=== PATIENT | male | born 1965 | race Caucasian/White ===

== ENCOUNTER 2017-04-15 18:35 | Emergency (ER) | payer OTHER ==
[2017-04-15 18:40] VITALS: RESP 18
--- NOTE | 2017-04-15 19:40 | CPEKG ---
Heart Rate: 89 RR Interval: 674 P-R Interval: 164 QRSD Interval: 92 QT Interval: 348 QTC Interval: 424 P [place]: 65 QRS [place]: 33 T Wave [place]: 8 EKG Severity - NORMAL ECG - EKG Impression: SINUS RHYTHM Electronically Signed By: Ashok Sood 16-Apr-2017 12:21:00
--- NOTE | 2017-04-15 20:11 | EDPHY ---
HPI/HX/ROS/PE/MDM Narrative: CHIEF COMPLAINT: "I just got concerned I got a clot in my lung" HISTORY OF PRESENT ILLNESS: The patient is a 51 y/o male, with a history of a provoked DVT and Hodgkin's lymphoma, complaining of right-sided chest and neck pain onset a few days ago. Last Wednesday, he developed chest and throat soreness that he attributed to yelling while at a baseball game on Wednesday. Those symptoms completely resolved over the next few days, but two days ago his pleuritic right-sided chest pain recurred. The pain radiates into the right side of his neck and onto his shoulder. He denies arm edema, discoloration, weakness, or paresthesias. He has not had any dyspnea even with exertion or dysphagia. He tried aspirin for pain and is unsure if it helped. He notes the pain today is somewhat similar to pain he experienced prior to his diagnosis with Hodgkin's lymphoma, but that pain was higher up in his neck. He denies history of CAD, OK, or GERD. No recent trauma, cough, fever, chills, chest pain, shortness of breath, palpitations, vomiting, diarrhea, urinary complaints, headache, lightheadedness. REVIEW OF SYSTEMS: Aside from elements discussed in the HPI, a comprehensive 10-point review of systems was reviewed and is negative. PAST MEDICAL HISTORY: Hodgkin's lymphoma post chemotherapy and radiation - he has not continued regular surveillance for the last 6 years, provoked DVT from prolonged commuting 4 years ago - was on Xarelto for 6 months. SOCIAL HISTORY: Nonsmoker. Weekend drinker. No illicit drugs. Employed. PCP: Dr. oDminguez VITAL SIGNS: Reviewed by me GENERAL: Mildly obese, well-nourished, resting comfortably in no respiratory distress. HEENT: Atraumatic. Eyes: No icterus, no injection. Mouth: moist mucous membranes. No erythema or lesions. Neck: supple with no adenopathy. No tenderness to palpation anteriorly. No swelling. LUNGS: Clear to auscultation bilaterally, no wheezes, rhonchi or rales. CHEST: No crepitus. No tenderness. No rash. CARDIAC: Regular rate and rhythm, no rubs, murmurs or gallops. ABDOMEN: Soft, nontender, nondistended, bowel sounds normal. BACK: No CVA tenderness. EXTREMITIES: No trauma. No edema. Range of motion is normal throughout. NEURO: Alert and oriented, grossly nonfocal. SKIN: Warm and dry, no rash. PSYCHIATRIC: Normal mentation, no agitation. Portions of this note were transcribed by a district medical examiner. I personally performed a history, physical exam, medical decision making, and confirmed accuracy of information the transcribed note. ED Course: IV established. Labs drawn. Chest CTA ordered due to concern for potential pulmonary embolism. Patient placed on equipment monitor phototypesetting. The 12 lead EKG was interpreted by myself. Normal sinus rhythm, no ST or T- wave changes See hard copy and/or "tracemaster" electronic copy for interpretation. The patient's laboratory evaluation largely unremarkable. Troponin is negative. Patient has had pain since last Wednesday, described as an aching sensation in the right chest with some discomfort into his right neck. Patient's CT scan does not demonstrate pulmonary embolism. Patient will be discharged with a diagnosis of atypical chest discomfort. He will follow up with his primary care physician. MDM: After history and physical examination, the differential for chest pain was considered, including but not limited to, myocardial ischemia, acute coronary syndrome, pulmonary embolus, chest wall pain, pleural inflammation and pulmonary infectious causes. - Data Points Imaging Results: Imaging Impressions Chest/Thorax CTA 04/15/17 20:20 Impression: 1. No pulmonary emboli. 2. Previous pulmonary granulomatous disease on the left. I telephoned results to Dr. Adina Goncalves at 2130 hours. Imaging: Discussed imaging studies w/ call centre supervisor Radiologist, I viewed and interpreted images myself Laboratory Results: Laboratory Results 04/15/17 19:30 04/15/17 19:30 04/15/17 04/15/17 19:30 19:30 WBC 11.65 10^3/uL H 10^3/uL (3.80-9.50) RBC 5.60 10^6/uL 10^6/uL (4.40-6.38) Hgb 18.7 g/dL H g/dL (13.7-17.5) Hct 52.2 % H % (40.0-51.0) MCV 93.2 fL fL (81.5-99.8) MCH 33.4 pg pg (27.9-34.1) MCHC 35.8 g/dL g/dL (32.4-36.7) RDW 12.4 % % (11.5-15.2) Plt Count 193 10^3/uL 10^3/uL (150-400) MPV 13.0 fL H fL (8.7-11.7) Neut % (Auto) 64.1 % % (39.3-74.2) Lymph % (Auto) 20.3 % % (15.0-45.0) [place] % (Auto) 11.1 % % (4.5-13.0) Eos % (Auto) 3.3 % % (0.6-7.6) Baso % (Auto) 0.7 % % (0.3-1.7) Nucleat RBC Rel Count 0.0 % % (0.0-0.2) Absolute Neuts (auto) 7.48 10^3/uL H 10^3/uL (1.70-6.50) Absolute Lymphs (auto) 2.36 10^3/uL 10^3/uL (1.00-3.00) Absolute Monos (auto) 1.29 10^3/uL H 10^3/uL (0.30-0.80) Absolute Eos (auto) 0.38 10^3/uL 10^3/uL (0.03-0.40) Absolute Basos (auto) 0.08 10^3/uL 10^3/uL (0.02-0.10) Absolute Nucleated RBC 0.00 10^3/uL 10^3/uL (0-0.01) Immature Gran % 0.5 % % (0.0-1.1) Immature Gran # 0.06 10^3/uL 10^3/uL (0.00-0.10) Sodium 142 mEq/L mEq/L (134-144) Potassium 4.2 mEq/L mEq/L (3.5-5.2) Chloride 108 mEq/L mEq/L (97-110) Carbon Dioxide 20 mEq/l L mEq/l (22-31) Anion Gap 14 mEq/L mEq/L (8-16) BUN 28 mg/dL H mg/dL (7-23) Creatinine 1.3 mg/dL mg/dL (0.7-1.3) Estimated GFR 58 Glucose 84 mg/dL mg/dL (70-100) Calcium 10.2 mg/dL mg/dL (8.5-10.4) Troponin I 0.013 ng/mL ng/mL (0.000-0.034) NT-Pro-B Natriuret Pep 77 pg/mL pg/mL (0-125) Medications Given: Discontinued Medications Sodium Chloride (Ns) 500 mls @ 1,000 mls/hr IV EDNOW ONE PRN Reason: Protocol Stop: 04/15/17 20:49 Last Admin: 04/15/17 20:28 Dose: 500 mls Ketorolac Tromethamine (Toradol) 30 mg IVP EDNOW ONE Stop: 04/15/17 21:59 Last Admin: 04/15/17 22:23 Dose: 30 mg General Time Seen by Provider: 04/15/17 19:59 Initial Vital Signs: Initial Vital Signs Temperature (C) 37.2 C 04/15/17 18:37 Heart Rate 102 H 04/15/17 18:37 Respiratory Rate 18 04/15/17 18:37 Blood Pressure 160/101 H 04/15/17 18:37 O2 Sat (%) 94 04/15/17 18:37 O2 Delivery Mode Room Air Allergies/Adverse Reactions: No Known Allergies Allergy (Unverified 05/17/13 17:56) Home Medications: Medication Instructions Recorded Josselin Allergy 07/29/15 Departure - Departure Disposition: Home, Routine, Self-Care Clinical Impression: Chest pain Qualifiers: Chest pain type: other chest pain Qualified Code(s): R07.89 - Other chest pain Condition: Good Instructions: Chest Pain (ED), Thoracic Pain (ED) Additional Instructions: No clear clot chest discomfort has been identified. There is no evidence of a cardiac issue or pulmonary embolism. I recommend Ibuprofen (Motrin, Advil) or Naproxen Sodium (Aleve) for pain and anti-inflammatory effects. You may take either one, but do not take both. Your dose is: Ibuprofen 600 mg every 6-8 hours with food. OR Naproxen Sodium (Aleve) 220 mg every 12 hours. Please follow up with Dr. Nguyễn Dominguez early next week for re-evaluation. Be seen sooner if you are worse, return to the emergency department if you develop worsening chest discomfort, numbness or tingling in her arms or legs, shortness of breath, palpitations, lightheadedness, dizziness, fainting, cough, fever, or other concerns. Referrals: NGUYỄN DOMINGUEZ [Primary Care Provider] - As per Instructions Report Scribed for: Adina Goncalves Report Scribed by: Graciela Gaytan Date of Report: 04/15/17 Time of Report: 20:39
[2017-04-15] MEDS ORDERED: NS 500 ML IV ONE (20:20)
[2017-04-15 20:27] LABS: % IMMATURE GRANULYOCYTES 0.5 % (0.0-1.1); ABSOLUTE IMMATURE GRANULOCYTES 0.06 10^3/uL (0.00-0.10); ADD DIFF? NO; ADD MORPH? NO; ADD SCAN? NO; ATYPICAL LYMPHOCYTE FLAG 0 (0-99); FRAGMENT RBC FLAG 0 (0-99); HEMATOCRIT 52.2 % (40.0-51.0); HEMOGLOBIN 18.7 g/dL (13.7-17.5); LEFT SHIFT FLG 0 (0-99); LIPEMIA HEMOLYSIS FLAG 90 (0-99); MEAN CELL HEMOGLOBIN 33.4 pg (27.9-34.1); MEAN CELL HEMOGLOBIN CONCENTR. 35.8 g/dL (32.4-36.7); MEAN CELL VOLUME 93.2 fL (81.5-99.8); PLATELET CLUMPS FLAG 0 (0-99); PLATELET COUNT 193 10^3/uL (150-400); RED CELL DISTRIBUTION WIDTH 12.4 % (11.5-15.2)
[2017-04-15 20:33] LABS: ANION GAP 14 mEq/L (8-16); CALCIUM 10.2 mg/dL (8.5-10.4); CARBON DIOXIDE 20 mEq/l (22-31); CHLORIDE 108 mEq/L (97-110); CREATININE 1.3 mg/dL (0.7-1.3); GLOMERULAR FILTRATION RATE 58; GLUCOSE 84 mg/dL (70-100); POTASSIUM 4.2 mEq/L (3.5-5.2); SODIUM 142 mEq/L (134-144)
[2017-04-15] MEDS ORDERED: IOPAMIDOL (ISOVUE-300) 100 ML BTL ONE (20:44)
[2017-04-15 20:46] LABS: TROPONIN I 0.013 ng/mL (0.000-0.034)
[2017-04-15] MEDS ORDERED: IOPAMIDOL (ISOVUE 370) 100 ML BTL IV ONE (20:56)
[2017-04-15] MEDS ORDERED: KETOROLAC 30 MG/1 ML SDV IVP ONE (21:58)
[2017-04-15 22:36] VITALS: BP 139/90; PULSE 81; TEMP 98.2; O2SAT 97
== END 2017-04-15 22:36 | disposition home or self-care (01) ==
DX: R07.9 Chest pain, unspecified (principal); E86.9 Volume depletion, unspecified; Z85.71 Personal history of Hodgkin lymphoma
CPT/HCPCS: 96374; J1885; Q9967